=== PATIENT | male | born 1980 | race Caucasian/White ===

== ENCOUNTER → 2016-11-04 | Outpatient (CLI) | payer OTHER ==
--- NOTE | 2016-11-04 17:02 | XR ---
EXAMINATION TYPE: XR shoulder complete RT DATE OF EXAM: 11/04/2016 COMPARISON: NONE HISTORY: Pain TECHNIQUE: 3 views FINDINGS: I see no fracture nor dislocation. Glenohumeral joint is anatomic. IMPRESSION: Negative right shoulder exam.
== END | disposition home or self-care (01) ==
LOC: RADXRMAIN 16:24
PROVIDERS: ATTEND Internal Medicine
DX: M25.511 Pain in right shoulder (principal)

== ENCOUNTER 2020-10-06 15:57 | Emergency (ER) | payer OTHER ==
[2020-10-06 16:03] VITALS: BP 130/76; PULSE 80; RESP 16; TEMP 98.7
[2020-10-06] MEDS ORDERED: DEXAMETHASONE SOD PHOSPHATE 10 MG/ML 1 ML VIAL IM STA (16:11)
--- NOTE | 2020-10-06 16:11 | ED ---
ENT HPI - General Chief complaint: ENT Stated complaint: sore throat Time Seen by Provider: 10/06/20 16:04 Source: patient Mode of arrival: ambulatory Limitations: no limitations - History of Present Illness Initial comments: 40-year-old male presents to emergency with a chief complaint of a sore throat. States it occurred this morning. States denies noticing slight change in his voice. States mostly the sore throat seems to be localized to the left side. Reports done aphasia. Denies any fevers or chills. Denies any cough or chest pain. Denies history of strep pharyngitis. Denies any nausea or vomiting. Not diabetic. - Related Data Previous Rx's Medication Instructions Recorded Cyclobenzaprine [Flexeril] 10 mg PO TID PRN #15 tab 08/25/15 Hydrocodone/Acetaminophen [[place] 1 tab PO Q6HR PRN #20 tab 08/25/15 5-325] Amoxicillin 875 mg PO Q12HR #20 tablet 10/06/20 Allergies Allergy/AdvReac Type Severity Reaction Status Date / Time No Known Allergies Allergy Verified 10/06/20 16:00 Review of Systems ROS Statement: Those systems with pertinent positive or pertinent negative responses have been documented in the HPI. ROS Other: All systems not noted in ROS Statement are negative. Past Medical History Past Medical History: No Reported History History of Any Multi-Drug Resistant Organisms: None Reported Past Surgical History: No Surgical Hx Reported Additional Past Surgical History / Comment(s): colonoscopy, vasectomy Past Psychological History: No Psychological Hx Reported Smoking Status: Current every day smoker Past Alcohol Use History: None Reported Past Drug Use History: None Reported General Exam Limitations: no limitations General appearance: alert, in no apparent distress Head exam: Present: atraumatic, normocephalic, normal inspection Eye exam: Present: normal appearance, PERRL, EOMI Pupils: Present: normal accommodation ENT exam: Present: normal exam, mucous membranes moist, TM's normal bilaterally, normal external ear exam, other (No hot potato voice.). Absent: normal o ropharynx (Left-sided tonsillar enlargement with erythema and exudates.) Neck exam: Present: normal inspection, full ROM, lymphadenopathy (Anterior cervical nodes). Absent: tenderness Respiratory exam: Present: normal lung sounds bilaterally. Absent: respiratory distress, wheezes, rales, rhonchi, stridor Cardiovascular Exam: Present: regular rate, normal rhythm, normal heart sounds. Absent: systolic murmur GI/Abdominal exam: Present: soft. Absent: distended, tenderness, guarding, rebound, rigid Extremities exam: Present: normal inspection, full ROM, normal capillary refill. Absent: tenderness, pedal edema, joint swelling Back exam: Present: normal inspection, full ROM. Absent: tenderness Neurological exam: Present: alert, oriented X3 Psychiatric exam: Present: normal affect, normal mood Skin exam: Present: warm, dry, intact, normal color Course Vital Signs 10/06/20 16:00 Temperature 98.7 F Pulse Rate 80 Respiratory 16 Rate Blood Pressure 130/76 O2 Sat by Pulse 96 Oximetry Medical Decision Making - Medical Decision Making 40-year-old male presents emergency Department with a chief complaint of sore throat. Physical examination, left-sided tonsillar enlargement, erythema with exudates. Also anterior cervical lymph nodes. Vital signs within normal limits. No hot potato voice. No signs of Gm's angina. He is not diabetic. We'll start amoxicillin. Also given steroids for symptomatically. Strict return parameters were thoroughly discussed the patient was understanding and agreeable. Case discussed with Dr. Segovia. Disposition Clinical Impression: Pharyngitis Disposition: HOME SELF-CARE Condition: Stable Instructions (If sedation given, give patient instructions): Pharyngitis (ED) Additional Instructions: Please return to the Emergency Department if symptoms worsen or any other concerns. Prescriptions: Amoxicillin 875 mg PO Q12HR #20 tablet Is patient prescribed a controlled substance at d/c from ED?: No Referrals: None,Stated [Primary Care Provider] - 1-2 days Time of Disposition: 16:11
== END 2020-10-06 16:32 | disposition home or self-care (01) ==
LOC: EC 15:57
DX: J02.9 Acute pharyngitis, unspecified (principal); F17.200 Nicotine dependence, unspecified, uncomplicated; Z79.2 Long term (current) use of antibiotics; R47.01 Aphasia
CPT/HCPCS: 99282; 96372; J1100

== ENCOUNTER 2020-12-25 01:05 | Emergency (ER) | payer OTHER ==
[2020-12-25] MEDS ORDERED: DEXAMETHASONE SOD PHOSPHATE 10 MG/ML 1 ML VIAL IM STA (01:21)
[2020-12-25] MEDS ORDERED: KETOROLAC 15 MG/ML 1 ML VIAL IM STA (01:21)
--- NOTE | 2020-12-25 01:27 | ED ---
ENT HPI - General Chief complaint: ENT Stated complaint: Throat pain Source: patient, RN notes reviewed Mode of arrival: ambulatory - History of Present Illness Initial comments: Patient is a 40-year-old male that comes to emergency room complaining of left- sided throat pain. He notes that he does have some difficulty swallowing and talking secondary to pain. He notes he was seen several months ago for the same issue given steroids and antibiotic helped. He notes that he has not followed up with an ENT specialist or primary care for. He notes that his pain is approximately a 7-8 out of 10 with no relief from at home therapy. He notes that this all started yesterday. He was otherwise a well-appearing 40-year-old male in no apparent distress or pain. He denied any chest pain shortness of b reath headache nausea vomiting diarrhea constipation fever fatigue chills. - Related Data Previous Rx's Medication Instructions Recorded Cyclobenzaprine [Flexeril] 10 mg PO TID PRN #15 tab 08/25/15 Hydrocodone/Acetaminophen [[place] 1 tab PO Q6HR PRN #20 tab 08/25/15 5-325] Amoxicillin 875 mg PO Q12HR #20 tablet 10/06/20 Azithromycin [Zithromax Z-pack (6 0 mg PO DIRECTED #6 tab 12/25/20 tabs)] Allergies Allergy/AdvReac Type Severity Reaction Status Date / Time No Known Allergies Allergy Verified 12/25/20 01:10 Review of Systems ROS Statement: Those systems with pertinent positive or pertinent negative responses have been documented in the HPI. ROS Other: All systems not noted in ROS Statement are negative. Past Medical History Past Medical History: No Reported History History of Any Multi-Drug Resistant Organisms: None Reported Past Surgical History: No Surgical Hx Reported Additional Past Surgical History / Comment(s): colonoscopy, vasectomy Past Psychological History: No Psychological Hx Reported Smoking Status: Current every day smoker Past Alcohol Use History: None Reported Past Drug Use History: None Reported General Exam General appearance: alert, in no apparent distress Head exam: Present: atraumatic, normocephalic, normal inspection Eye exam: Present: normal appearance, PERRL, EOMI. Absent: scleral icterus, conjunctival injection, periorbital swelling ENT exam: Present: normal exam, mucous membranes moist, other (left Tonsil erythematous, swollen, minimal exudate.) Expanded Mouth exam: Present: tongue normal. Absent: drooling, trismus, muffled voice, tongue elevation Neck exam: Present: normal inspection, tenderness (Left side), full ROM. Absent: meningismus, lymphadenopathy, thyromegaly Respiratory exam: Present: normal lung sounds bilaterally. Absent: respiratory distress, wheezes, rales, rhonchi, stridor Cardiovascular Exam: Present: regular rate, normal rhythm, normal heart sounds. Absent: systolic murmur, diastolic murmur, rubs, gallop, clicks Extremities exam: Present: normal inspection, full ROM, normal capillary refill. Absent: tenderness, pedal edema, joint swelling, calf tenderness Neurological exam: Present: alert, oriented X3 Psychiatric exam: Present: normal affect, normal mood Skin exam: Present: warm, dry, intact, normal color. Absent: rash Course Vital Signs 12/25/20 01:08 Temperature 98.5 F Pulse Rate 75 Respiratory 21 Rate Blood Pressure 137/87 O2 Sat by Pulse 98 Oximetry Medical Decision Making - Medical Decision Making 40-year-old male with a left sided throat pain, swollen tonsil. 10 mg of Decadron, 15 mg of Toradol ordered. Antibiotics sent to pharmacy for tonsillitis. Case discussed with Dr. Trejo, patient can discharge home. Disposition Clinical Impression: Sore throat, Tonsillitis Disposition: HOME SELF-CARE Condition: Stable Instructions (If sedation given, give patient instructions): Tonsillitis (ED) Additional Instructions: Please return to the Emergency Department if symptoms worsen or any other concerns. Take antibiotics as prescribed until complete. Follow-up with ENT specialist. Prescriptions: Azithromycin [Zithromax Z-pack (6 tabs)] 0 mg PO DIRECTED #6 tab Is patient prescribed a controlled substance at d/c from ED?: No Referrals: None,Stated [Primary Care Provider] - 1-2 days Mikhail Carreno DO [Doctor of Osteopathic Medicine] - 1-2 days Time of Disposition: 01:59
[2020-12-25 02:39] VITALS: BP 133/74; PULSE 70; RESP 18; TEMP 98.4
== END 2020-12-25 02:26 | disposition home or self-care (01) ==
LOC: EC 01:05
DX: J03.90 Acute tonsillitis, unspecified (principal); F17.200 Nicotine dependence, unspecified, uncomplicated
CPT/HCPCS: 96372; 99282